=== PATIENT | male | born 1970 | race African-American/Black ===

== ENCOUNTER 2020-10-16 06:03 | Emergency (ER) | payer MEDICAID ==
[~2020-10-16] VITALS: Ht 188 cm; Wt 99.8 kg
--- NOTE | 2020-10-16 06:13 | Emergency Room Report ---
History of Present Illness General Chief Complaint: Flu Like Symptoms Source: Patient Present Illness HPI Disclaimer: Please note that this report is being documented using DRAGON technology. This can lead to erroneous entry secondary to incorrect interpretation by the dictating instrument. HPI: 50-year-old male presents for evaluation of fatigue vomiting and diarrhea. Symptoms present the last 2 days. He reports diffuse abdominal cramping, nausea with vomiting and persistent loose stools. Denies melena, hematochezia or hematemesis. Denies fever or chills. This morning he lost his sense of taste. No recent Covid testing. He reports international domestic travel for work recently. No known sick contacts. Denies history of COPD, smoking. Denies cough, congestion, chest pain, shortness of breath. Reports rhinorrhea and nasal congestion. PMH: Denied PSH: Denied Allergies: Denied Social Hx: Tobacco use Allergies: Coded Allergies: No Known Allergies (Unverified , 10/16/20) COVID-19 Screening Contact w/high risk pt: No Experienced COVID-19 symptoms?: Yes COVID-19 Testing performed [employer]: Yes - december 2019 COVID-19 Screening: Negative COVID-19 COVID-19 Testing Source: k Nursing Documentation-PMH Past Medical History: No Stated History Review of Systems All Other Systems: negative except mentioned in HPI Physical Exam Vital Signs Date Time Temp Pulse Resp B/P (MAP) Pulse Ox O2 Delivery O2 Flow Rate FiO2 10/16/20 06:02 97.9 92 18 113/76 (88) 98 Room Air General: Awake and alert, appears uncomfortable HEENT: NC/AT. EOMI. Cardiovascular: RRR. S1 and S2 normal. No murmur appreciated Resp: Normal work of breathing. No cough, wheezing or crackles appreciated Abdomen: Abdomen is soft, nondistended. Nontender Skin: Intact. No abrasions, laceration or rash over the exposed skin MSK: Normal tone and bulk. Moving all extremities. No obvious deformity. Neuro: Awake and alert. Mentating appropriately. Medical Decision Making Diagnostic Impression: Primary Impression: Dehydration Additional Impressions: Diarrhea Hyperbilirubinemia ER Course Is a 50-year-old male presenting for evaluation of flulike symptoms. Concern for influenza, COVID-19, pneumonia, bronchitis, pancreatitis, gastroenteritis, gastritis among others. Labs show slight elevation in creatinine and patient receiving IV fluids. BUN was within normal limits. Bilirubin slightly elevated. LFTs are within normal limits as is lipase. No evidence of acute pancreatitis or acute cholecystitis clinically. Patient received 2 L IV fluids and antiemetics. He was improved and able to tolerate p.o. in the emergency department. He will follow up on an outpatient basis for the hyperbilirubinemia. He is well-appearing and vital signs are within normal limits. Instructed to return with new or worsening symptoms. Laboratory Tests Test 10/16/20 06:20 White Blood Count 8.4 K/UL (4.8-10.8) Red Blood Count 5.13 M/UL (4.70-6.10) Hemoglobin 15.1 G/DL (14.2-18.0) Hematocrit 43.9 % (42.0-52.0) Mean Corpuscular Volume 86 FL (80-99) Mean Corpuscular Hemoglobin 29.5 PG (27.0-31.0) Mean Corpuscular Hemoglobin Concent 34.4 G/DL (32.0-36.0) Red Cell Distribution Width 14.0 % (11.6-14.8) Platelet Count 119 K/UL (150-450) L Mean Platelet Volume 8.8 FL (6.5-10.1) Neutrophils (%) (Auto) 78.9 % (45.0-75.0) H Lymphocytes (%) (Auto) 11.9 % (20.0-45.0) L Monocytes (%) (Auto) 8.1 % (1.0-10.0) Eosinophils (%) (Auto) 0.0 % (0.0-3.0) Basophils (%) (Auto) 1.1 % (0.0-2.0) Sodium Level 133 MMOL/L (136-145) L Potassium Level 4.1 MMOL/L (3.5-5.1) Chloride Level 97 MMOL/L (98-107) L Carbon Dioxide Level 30 MMOL/L (21-32) Anion Gap 6 mmol/L (5-15) Blood Urea Nitrogen 11 mg/dL (7-18) Creatinine 1.5 MG/DL (0.55-1.30) H Estimated Glomerular Filtration Rate 59.5 mL/min (>60) Glucose Level 138 MG/DL (74-106) H Calcium Level 7.9 MG/DL (8.5-10.1) L Total Bilirubin 1.9 MG/DL (0.2-1.0) H Direct Bilirubin 0.4 MG/DL (0.0-0.3) H Aspartate Amino Transferase (AST) 42 U/L (15-37) H Alanine Aminotransferase (ALT) 21 U/L (12-78) Alkaline Phosphatase 51 U/L (46-116) Total Protein 6.8 G/DL (6.4-8.2) Albumin 3.0 G/DL (3.4-5.0) L Globulin 3.8 g/dL Albumin/Globulin Ratio 0.8 (1.0-2.7) L Lipase 72 U/L (73-393) L Last Vital Signs Date Time Temp Pulse Resp B/P (MAP) Pulse Ox O2 Delivery O2 Flow Rate FiO2 10/16/20 06:02 97.9 92 18 113/76 (88) 98 Room Air Disposition: HOME, SELF-CARE Condition: Stable Scripts Loperamide Hcl (ANTI-DIARRHEAL) 2 Mg Capsule 2 MG PO BID, #15 CAP Prov: Lion Marley MD 10/16/20 Ondansetron Odt* (ZOFRAN ODT*) 4 Mg Tab.rapdis 4 MG BC EVERY 6 HOURS PRN for Nausea & Vomiting, #20 TAB 0 Refills Prov: Lion Marley MD 10/16/20 Lion Marley MD Oct 16, 2020 06:13
[2020-10-16] MEDS ORDERED: Acetaminophen 500mg (ES) tab ORAL ONE ×2 (06:15→06:30)
--- NOTE | 2020-10-16 06:34 | NUR ---
ED Nurse Note: Pt walked in from home. Ambulatory, walks with a steady gait. vitals stable on RA. States that he has been feeling sick, abdominal pain and diarrhea for the last two days. He states that he has been traveling to multiple countries for work and [place] he just returned home for the holidays from [facility]. Labs sent, fluids started, ER assesed pt at bedside.
[2020-10-16 06:39] LABS: BASOPHILS % (AUTO) 1.1 % (0.0-2.0); HEMATOCRIT 43.9 % (42.0-52.0); HEMOGLOBIN 15.1 G/DL (14.2-18.0); LYMPHOCYTES % (AUTO) 11.9 % (20.0-45.0); MEAN CORPUSCULAR VOLUME 86 FL (80-99); MONOCYTES % (AUTO) 8.1 % (1.0-10.0); NEUTROPHILS % (AUTO) 78.9 % (45.0-75.0); PLATELET COUNT 119 K/UL (150-450); RED BLOOD COUNT 5.13 M/UL (4.70-6.10); WHITE BLOOD COUNT 8.4 K/UL (4.8-10.8)
[2020-10-16 07:08] LABS: CALCIUM 7.9 MG/DL (8.5-10.1); CREATININE 1.5 MG/DL (0.55-1.30); POTASSIUM 4.1 MMOL/L (3.5-5.1)
--- NOTE | 2020-10-16 07:15 | NUR ---
ED Nurse Note: Recieved report from TANNER Perez. Patient resting in the bed, VSS at this time, NAD noted
--- NOTE | 2020-10-16 07:19 | NUR ---
HAND-OFF: Report given to Mimi HART.
[2020-10-16 07:21] LABS: ALBUMIN/GLOBULIN RATIO 0.8 (1.0-2.7); BILIRUBIN,TOTAL 1.9 MG/DL (0.2-1.0)
--- NOTE | 2020-10-16 07:22 | Diagnostic Imaging Report ---
EXAM: XR Chest, 1 View CLINICAL HISTORY: SOB TECHNIQUE: Frontal view of the chest. COMPARISON: None available FINDINGS/ IMPRESSION: There is no large focal consolidation, pleural effusion, or pneumothorax. Please note that lung apices are not adequately evaluated due to overlying clavicles and prominent costochondral margins. Please note that small lung nodules may be radiographically occult. Presence or absence of lung nodules cannot be ascertained on the basis of this study. If there is further concern for intrathoracic pathology, which may be occult on chest x-ray, further evaluation with chest CT is recommended. The heart size is qualitatively mildly prominent. Visualized bones are grossly unremarkable. Question hiatal hernia.
[2020-10-16 07:53] LABS: BILIRUBIN,DIRECT 0.4 MG/DL (0.0-0.3)
[2020-10-16] MEDS ORDERED: ONDANSETRON ODT4 MG BC (09:20)
[2020-10-16] MEDS ORDERED: ANTI-DIARRHEAL2 MG PO (09:20)
[2020-10-16 10:00] VITALS: BP 113/76
--- NOTE | 2020-10-16 10:00 | NUR ---
ER DISCHARGE NOTE: Patient is cleared to be discharged per ERMD, pt is aox4, on room air, with stable vital signs. pt was given dc and prescription instructions, pt was able to verbalize understanding, pt id band and iv site removed without complications. pt is able to ambulate with steady gait. pt took all belongings.
== END 2020-10-16 10:00 | disposition home or self-care (01) ==
LOC: EDBD 06:03 → EMR 06:12
DX: E86.0 Dehydration (principal); R19.7 Diarrhea, unspecified; E80.6 Other disorders of bilirubin metabolism; Z72.0 Tobacco use
CPT/HCPCS: 71045; 80053; 82248; 83690; 85025; 96361; 96374; J2405; Z7502; 99284